=== PATIENT | female | born 1990 ===

== ENCOUNTER 2018-06-15 08:31 | Inpatient (IN) | payer OTHER ==
[~2018-06-15] VITALS: Ht 170.2 cm; Wt 185.0 kg
== END 2018-06-17 14:58 | disposition home or self-care, planned readmission (81) | DRG 806 ==
LOC: LDR 08:31 → OB/GYN 08:31
PROC: 10E0XZZ Delivery of Products of Conception, External Approach (ICD-10-PCS; principal; 2018-06-15)
PROC: 0UQGXZZ Repair Vagina, External Approach (ICD-10-PCS; 2018-06-15)
PROC: 4A1HXCZ Monitoring of Products of Conception, Cardiac Rate, External Approach (ICD-10-PCS; 2018-06-15)
DX: O60.14X0 Preterm labor third trimester with preterm delivery third trimester, not applicable or unspecified (principal); O71.4 Obstetric high vaginal laceration alone; Z37.0 Single live birth; Z3A.36 36 weeks gestation of pregnancy